=== PATIENT | male | born 1955 | race Caucasian/White ===

== ENCOUNTER 2017-07-06 08:55 | Inpatient (IN) ==
[2017-07-06] MEDS ORDERED: Ondansetron 4 MG/2 ML VIAL IVP ONE ×2 (09:07→13:02)
[2017-07-06] MEDS ORDERED: 0.9 % Sodium Chloride 1,000 ML IVC ONE ×2 (09:07→15:00)
--- NOTE | 2017-07-06 09:11 | Emergency Department Note ---
Disposition Clinical Impression: Acute kidney injury, Hyperglycemia, Dizziness Nausea and vomiting Qualifiers: Vomiting type: unspecified Vomiting Intractability: unspecified Qualified Code( s): R11.2 - Nausea with vomiting, unspecified Disposition: Admitted As Inpatient Condition: Fair Referrals: Noé Martin DO [Primary Care Provider] - Time of Disposition: 13:04 General Adult HPI - General Stated complaint: hyperglycemic Time Seen by Provider: 07/06/17 09:05 Source: patient Mode of arrival: EMS Limitations: no limitations Nursing Notes Reviewed: Yes Vital Signs Reviewed: Yes - History of Present Illness HPI Narrative: 62-year-old male presents for evaluation of nausea vomiting headache and difficulty ambulating. Patient states symptom onset has been the past couple days. Patient states he has had nausea vomiting and diarrhea for the past couple days. Patient also had a fever. Patient states that he feels dizzy when he walks. Patient also is complaining of shortness of breath with a cough. Patient states he has had a gradual onset of headache appears in the frontal region over the past 2 days. Patient states that he when he walks he is hitting the manzano. Patient denies any abdominal pain. Patient notes increased urination. Patient's blood sugar was elevated prior to arrival. Patient arrived via EMS. - Related Data Home Medications Medication Instructions Recorded Confirmed Atorvastatin [Lipitor] 40 mg PO HS 07/06/17 07/06/17 Esomeprazole Magnesium [Nexium] 40 mg PO DAILY 07/06/17 07/06/17 Lisinopril [Zestril] 10 mg PO DAILY 07/06/17 07/06/17 Metformin HCl [Glucophage] 1,000 mg PO BID 07/06/17 07/06/17 Allergies Allergy/AdvReac Type Severity Reaction Status Date / Time No Known Allergies Allergy Verified 07/06/17 09:11 All systems ED: reviewed and negative except as stated. Constitutional: Reports: fever Cardiovascular: Denies: chest pain Respiratory: Reports: cough, dyspnea Gastrointestinal: Reports: nausea, vomiting, diarrhea. Denies: abdominal pain Past Medical History - Past Medical History Source: patient Physical Exam - General Limitations: no limitations General appearance: alert, in no apparent distress - Head Head exam: atraumatic, normocephalic, normal inspection - Eye Eye exam: Present: normal appearance, PERRL, EOMI - ENT ENT exam: normal exam, normal oropharynx, mucous membranes moist - Neck Neck exam: Present: normal inspection - Chest Chest inspection: Present: normal inspection, symmetric chest wall rise - Respiratory Respiratory exam: Present: normal lung sounds bilaterally. Absent: respiratory distress - Cardiovascular Cardiovascular exam: Present: regular rate, normal rhythm. Absent: systolic murmur - Abdominal Exam Abdominal exam: Present: soft - Extremities Exam Extremities exam: Present: normal inspection. Absent: pedal edema - Back Exam Back exam: Present: normal inspection - Neurological Exam Neurological exam: Present: alert, oriented X3, CN II-XII intact - Expanded Neurological Exam Patient oriented to: Present: person, place, time Speech: Present: fluid speech Cranial nerves: EOM function (II, III, IV, ): Normal, facial sensation (V): Normal, facial palsy (VII): Normal, spinal accessory function (XI): Normal, tongue deviation (XII): Normal Cerebellar function: finger to nose: Normal Motor strength - LUE: 5/5 Motor strength - RUE: 5/5 Motor strength - LLE: 5/5 Motor strength - RLE: 5/5 Spinal cord function: Present: other (Positive Romberg) Coma Scale Eye Opening: Spontaneous Coma Scale Motor Response: Obeys Commands Coma Scale Verbal Response: Oriented Coma Scale Total: 15 - Skin Skin exam: Present: warm, dry, intact, normal color Course Course Narrative: Patient seen and examined via EMS. Patient will get basic labs, cardiac exam with EKG, chest x-ray and troponin. Patient also get symptomatically with IV fluids and antiemetics. - Reevaluation(s) Reevaluation #1: Patient seen and examined. Patient states he is feeling better however does state that he continues to complain of dizziness. Patient will get an MRI of the brain. Time: 10:01 Reevaluation #2: Patient seen and examined. Patient states that he still feels dizzy. Patient was also discussed at bedside. Patient does have a possible lung mass. Patient would likely need further imaging of the chest. Patient has a remote history of smoking. Patient denies any dyspnea. Time: 13:03 Vital Signs Temperature 99.3 F 07/06/17 09:03 Pulse Rate 111 07/06/17 09:03 Respiratory Rate 20 07/06/17 09:03 Blood Pressure 138/99 07/06/17 09:03 O2 Sat by Pulse Oximetry 93 07/06/17 09:03 Temperature 99.3 F 07/06/17 09:03 Pulse Rate 111 07/06/17 09:03 Respiratory Rate 20 07/06/17 09:03 Blood Pressure 138/99 07/06/17 09:03 O2 Sat by Pulse Oximetry 94 07/06/17 12:33 Oxygen Delivery Oxygen Delivery Room Air Medical Decision Making - MDM Narrative Medical decision making narrative: Patient presented initially with acute nausea vomiting diarrhea. Patient also had dizziness which is not worsened is barely upon standing. Initial concerns for metabolic versus central etiology the patient's dizziness. Patient was noted be hyperglycemic. Patient was treated with antiemetics as well as IV fluids. Patient persisted to have ataxic symptoms. She did get an MRI which showed remote infarcts. Patient denies history of strokes. Patient appeared to have continued symptoms. Patient does have acute kidney injury likely prerenal. Patient will be admitted to the hospital service for symptomatic treatment as well as medical optimization do a remote history of strokes. Patient would likely benefit from a CT scan with contrast of the chest however the patient's kidney function is slightly compromised. Patient's getting IV fluid hydration. Patient denies any abdominal pain or tenderness and a CT scan of the abdomen pelvis was not obtained at this time. - Lab Data Lab results reviewed: Yes I reviewed the patient's lab results. Result diagrams: 07/06/17 09:25 07/06/17 09:25 Lab Results 07/06/17 07/06/17 07/06/17 Range/Units 09:05 09:25 09:25 WBC 11.7 H (4.3-11.1) K/mcL RBC 5.43 (4.19-5.50) M/mcL Hgb 16.0 (12.9-16.9) g/dL Hct 46.9 (37.5-50.1) % MCV 86.4 (83.0-100.0) fL MCH 29.5 (28.0-33.3) pg MCHC 34.1 (31.6-35.5) g/dL RDW 13.0 (11.5-14.5) % Plt Count 214 (140-400) K/mcL MPV 9.7 (9.4-12.4) fL Immature Gran % 0.5 (0-4) % Seg Neutrophils % 70.5 % Lymphocytes % 17.6 % Monocytes % 11.1 % Eosinophils % 0.0 % Basophils % 0.3 % Neutrophils # 8.3 (1.6-8.9) K/mcL Lymphocytes # 2.1 (0.6-4.6) K/mcL Monocytes # 1.3 (0.0-1.3) K/mcL Eosinophils # 0.0 (0.0-0.6) K/mcL Basophils # 0.0 (0.0-0.2) K/mcL VBG pH (7.32-7.42) pH Units VBG pCO2 (41-51) mmHg VBG pO2 (25-50) mmHg VBG HCO3 (21-27) mEq/L Sodium 131 L (136-145) mEq/L Potassium 3.8 (3.5-5.1) mEq/L Chloride 97 L (98-107) mEq/L Carbon Dioxide 25 (23-29) mEq/L BUN 16 (8-23) mg/dL Creatinine 1.45 H (0.70-1.30) mg/dL Est GFR ( Amer) 60 (> 60) Est GFR (Non-Af Amer) 49 L (> 60) BUN/Creatinine Ratio 11 (6-26) Glucose 293 H (70-105) mg/dL POC Glucose 267 H (70-99) mg/dL Calculated Osmolality 284 (280-300) Lactic Acid (0.5-2.2) mmol/L Calcium 9.2 (8.6-10.3) mg/dL Total Bilirubin 0.8 (0.3-1.0) mg/dL Direct Bilirubin 0.3 H (0.0-0.2) mg/dL Indirect Bilirubin 0.5 (0.0-1.2) mg/dL AST 18 (13-39) Units/L ALT 19 (7-52) Units/L Alkaline Phosphatase 55 (34-104) Units/L Troponin I (< 0.04) ng/mL Serum Total Protein 7.4 (6.4-8.9) g/dL Albumin 3.8 (3.5-5.7) g/dL Globulin 3.6 H (2.4-3.5) g/dL Albumin/Globulin Ratio 1.1 (1.1-2.2) Lipase 27 (11-82) Units/L Beta-Hydroxybutyric Acd (0.02-0.27) mmol/L 07/06/17 07/06/17 07/06/17 Range/Units 09:25 09:25 09:25 WBC (4.3-11.1) K/mcL RBC (4.19-5.50) M/mcL Hgb (12.9-16.9) g/dL Hct (37.5-50.1) % MCV (83.0-100.0) fL MCH (28.0-33.3) pg MCHC (31.6-35.5) g/dL RDW (11.5-14.5) % Plt Count (140-400) K/mcL MPV (9.4-12.4) fL Immature Gran % (0-4) % Seg Neutrophils % % Lymphocytes % % Monocytes % % Eosinophils % % Basophils % % Neutrophils # (1.6-8.9) K/mcL Lymphocytes # (0.6-4.6) K/mcL Monocytes # (0.0-1.3) K/mcL Eosinophils # (0.0-0.6) K/mcL Basophils # (0.0-0.2) K/mcL VBG pH (7.32-7.42) pH Units VBG pCO2 (41-51) mmHg VBG pO2 (25-50) mmHg VBG HCO3 (21-27) mEq/L Sodium (136-145) mEq/L Potassium (3.5-5.1) mEq/L Chloride (98-107) mEq/L Carbon Dioxide (23-29) mEq/L BUN (8-23) mg/dL Creatinine (0.70-1.30) mg/dL Est GFR ( Amer) (> 60) Est GFR (Non-Af Amer) (> 60) BUN/Creatinine Ratio (6-26) Glucose (70-105) mg/dL POC Glucose (70-99) mg/dL Calculated Osmolality (280-300) Lactic Acid 1.3 (0.5-2.2) mmol/L Calcium (8.6-10.3) mg/dL Total Bilirubin (0.3-1.0) mg/dL Direct Bilirubin (0.0-0.2) mg/dL Indirect Bilirubin (0.0-1.2) mg/dL AST (13-39) Units/L ALT (7-52) Units/L Alkaline Phosphatase (34-104) Units/L Troponin I < 0.03 (< 0.04) ng/mL Serum Total Protein (6.4-8.9) g/dL Albumin (3.5-5.7) g/dL Globulin (2.4-3.5) g/dL Albumin/Globulin Ratio (1.1-2.2) Lipase (11-82) Units/L Beta-Hydroxybutyric Acd 0.21 (0.02-0.27) mmol/L 07/06/17 Range/Units 09:37 WBC (4.3-11.1) K/mcL RBC (4.19-5.50) M/mcL Hgb (12.9-16.9) g/dL Hct (37.5-50.1) % MCV (83.0-100.0) fL MCH (28.0-33.3) pg MCHC (31.6-35.5) g/dL RDW (11.5-14.5) % Plt Count (140-400) K/mcL MPV (9.4-12.4) fL Immature Gran % (0-4) % Seg Neutrophils % % Lymphocytes % % Monocytes % % Eosinophils % % Basophils % % Neutrophils # (1.6-8.9) K/mcL Lymphocytes # (0.6-4.6) K/mcL Monocytes # (0.0-1.3) K/mcL Eosinophils # (0.0-0.6) K/mcL Basophils # (0.0-0.2) K/mcL VBG pH 7.39 (7.32-7.42) pH Units VBG pCO2 39 L (41-51) mmHg VBG pO2 41 (25-50) mmHg VBG HCO3 24 (21-27) mEq/L Sodium (136-145) mEq/L Potassium (3.5-5.1) mEq/L Chloride (98-107) mEq/L Carbon Dioxide (23-29) mEq/L BUN (8-23) mg/dL Creatinine (0.70-1.30) mg/dL Est GFR ( Amer) (> 60) Est GFR (Non-Af Amer) (> 60) BUN/Creatinine Ratio (6-26) Glucose (70-105) mg/dL POC Glucose (70-99) mg/dL Calculated Osmolality (280-300) Lactic Acid (0.5-2.2) mmol/L Calcium (8.6-10.3) mg/dL Total Bilirubin (0.3-1.0) mg/dL Direct Bilirubin (0.0-0.2) mg/dL Indirect Bilirubin (0.0-1.2) mg/dL AST (13-39) Units/L ALT (7-52) Units/L Alkaline Phosphatase (34-104) Units/L Troponin I (< 0.04) ng/mL Serum Total Protein (6.4-8.9) g/dL Albumin (3.5-5.7) g/dL Globulin (2.4-3.5) g/dL Albumin/Globulin Ratio (1.1-2.2) Lipase (11-82) Units/L Beta-Hydroxybutyric Acd (0.02-0.27) mmol/L - Radiology Data Radiology results reviewed: Yes I reviewed the patient's radiology results. Chest X-Ray 07/06/17 09:09 IMPRESSION: There is a rounded density in the right lung base of uncertain etiology. A mass cannot be entirely excluded. Short-term follow-up chest x-ray or CT of the chest is suggested to further evaluate. The findings were sent to the Radiology Results Communication Center at 10:39 am on 07/06/2017to be communicated to a licensed caregiver. D/ / 07/06/2017 11:11:52 Asia Escoto MD / vidal Interpreting Provider: Asia Escoto MD - EKG Data EKG #1 EKG attestation: Yes I reviewed and interpreted this EKG. EKG shows normal: sinus rhythm Rate: tachycardia Rhythm: NSR [place]/QRS: normal Interpretation: no acute changes, nonspecific ST-T wave changes S.B.A.R. - S.B.A.R. Situation: Demographics Background: Presenting Complaint Assessment: Vital Signs, Course and respsone to treatment, Patient/Family Expectation Recommendation: Barrier(s) to disposition, Recommendation based on pending studies, treatments, or consults S.B.A.RShwetha Report Given to: Dr. Monserrat Ruggiero Repor Time: 13:14
[2017-07-06 09:39] LABS: Basophils % 0.3 %; Hematocrit 46.9 % (37.5-50.1); Immature Granulocytes % 0.5 % (0-4); Lymphocytes # 2.1 K/mcL (0.6-4.6); Lymphocytes % 17.6 %; Mean Corpuscular HGB Conc 34.1 g/dL (31.6-35.5); Mean Corpuscular Hemoglobin 29.5 pg (28.0-33.3); Mean Corpuscular Volume 86.4 fL (83.0-100.0); Mean Platelet Volume 9.7 fL (9.4-12.4); Monocytes # 1.3 K/mcL (0.0-1.3); Monocytes % 11.1 %; Neutrophils # 8.3 K/mcL (1.6-8.9); Platelet Count 214 K/mcL (140-400); Red Blood Count 5.43 M/mcL (4.19-5.50); Segmented Neutrophils % 70.5 %
[2017-07-06 09:40] LABS: VBG HCO3 24 mEq/L (21-27); VBG PCO2 39 mmHg (41-51); VBG PH 7.39 pH Units (7.32-7.42); VBG PO2 41 mmHg (25-50)
[2017-07-06 09:58] LABS: Albumin 3.8 g/dL (3.5-5.7); Albumin/Globulin Ratio 1.1 (1.1-2.2); Bilirubin,Direct 0.3 mg/dL (0.0-0.2); Bilirubin,Indirect 0.5 mg/dL (0.0-1.2); Bilirubin,Total 0.8 mg/dL (0.3-1.0); Calcium 9.2 mg/dL (8.6-10.3); Globulin 3.6 g/dL (2.4-3.5); Potassium 3.8 mEq/L (3.5-5.1); Total Protein 7.4 g/dL (6.4-8.9)
--- NOTE | 2017-07-06 10:16 | Emergency Department Note ---
Disposition Clinical Impression: Acute kidney injury, Hyperglycemia, Dizziness, Nausea and vomiting Disposition: Admitted As Inpatient Condition: Fair General Adult HPI - General Chief complaint: ED Dizziness Stated complaint: hyperglycemic Time Seen by Provider: 07/06/17 09:05 Source: patient Mode of arrival: EMS Limitations: no limitations - History of Present Illness Pain Scale: 4 - Related Data Home Medications Medication Instructions Recorded Confirmed Atorvastatin [Lipitor] 40 mg PO HS 07/06/17 07/06/17 Esomeprazole Magnesium [Nexium] 40 mg PO DAILY 07/06/17 07/06/17 Lisinopril [Zestril] 10 mg PO DAILY 07/06/17 07/06/17 Metformin HCl [Glucophage] 1,000 mg PO BID 07/06/17 07/06/17 Allergies Allergy/AdvReac Type Severity Reaction Status Date / Time No Known Allergies Allergy Verified 07/06/17 09:11 Constitutional: Reports: fever Cardiovascular: Denies: chest pain Respiratory: Reports: cough, dyspnea Gastrointestinal: Reports: nausea, vomiting, diarrhea. Denies: abdominal pain Past Medical History - Past Medical History Medical history: Reports: diabetes, hypertension Psychiatric history: Reports: no psych history - Social History Smoking Status: Never smoker Smokeless Tobacco Status: No Alcohol use: Reports: none Drug use: Reports: none Physical Exam - General Limitations: no limitations General appearance: alert, in no apparent distress Course Vital Signs Temperature 99.3 F 07/06/17 09:03 Pulse Rate 111 07/06/17 09:03 Respiratory Rate 20 07/06/17 09:03 Blood Pressure 138/99 07/06/17 09:03 O2 Sat by Pulse Oximetry 93 07/06/17 09:03 Temperature 99.2 F 07/06/17 15:34 Pulse Rate 100 07/06/17 15:34 Respiratory Rate 16 07/06/17 15:34 Blood Pressure 131/87 07/06/17 15:34 O2 Sat by Pulse Oximetry 97 07/06/17 15:34 Oxygen Delivery Oxygen Delivery Nasal Cannula Medical Decision Making - Lab Data Result diagrams: 07/06/17 09:25 07/06/17 09:25 Lab Results 07/06/17 07/06/17 07/06/17 Range/Units 09:05 09:25 09:25 WBC 11.7 H (4.3-11.1) K/mcL RBC 5.43 (4.19-5.50) M/mcL Hgb 16.0 (12.9-16.9) g/dL Hct 46.9 (37.5-50.1) % MCV 86.4 (83.0-100.0) fL MCH 29.5 (28.0-33.3) pg MCHC 34.1 (31.6-35.5) g/dL RDW 13.0 (11.5-14.5) % Plt Count 214 (140-400) K/mcL MPV 9.7 (9.4-12.4) fL Immature Gran % 0.5 (0-4) % Seg Neutrophils % 70.5 % Lymphocytes % 17.6 % Monocytes % 11.1 % Eosinophils % 0.0 % Basophils % 0.3 % Neutrophils # 8.3 (1.6-8.9) K/mcL Lymphocytes # 2.1 (0.6-4.6) K/mcL Monocytes # 1.3 (0.0-1.3) K/mcL Eosinophils # 0.0 (0.0-0.6) K/mcL Basophils # 0.0 (0.0-0.2) K/mcL VBG pH (7.32-7.42) pH Units VBG pCO2 (41-51) mmHg VBG pO2 (25-50) mmHg VBG HCO3 (21-27) mEq/L Sodium 131 L (136-145) mEq/L Potassium 3.8 (3.5-5.1) mEq/L Chloride 97 L (98-107) mEq/L Carbon Dioxide 25 (23-29) mEq/L BUN 16 (8-23) mg/dL Creatinine 1.45 H (0.70-1.30) mg/dL Est GFR ( Amer) 60 (> 60) Est GFR (Non-Af Amer) 49 L (> 60) BUN/Creatinine Ratio 11 (6-26) Glucose 293 H (70-105) mg/dL POC Glucose 267 H (70-99) mg/dL Calculated Osmolality 284 (280-300) Lactic Acid (0.5-2.2) mmol/L Calcium 9.2 (8.6-10.3) mg/dL Total Bilirubin 0.8 (0.3-1.0) mg/dL Direct Bilirubin 0.3 H (0.0-0.2) mg/dL Indirect Bilirubin 0.5 (0.0-1.2) mg/dL AST 18 (13-39) Units/L ALT 19 (7-52) Units/L Alkaline Phosphatase 55 (34-104) Units/L Troponin I (< 0.04) ng/mL Serum Total Protein 7.4 (6.4-8.9) g/dL Albumin 3.8 (3.5-5.7) g/dL Globulin 3.6 H (2.4-3.5) g/dL Albumin/Globulin Ratio 1.1 (1.1-2.2) Lipase 27 (11-82) Units/L Beta-Hydroxybutyric Acd (0.02-0.27) mmol/L 07/06/17 07/06/17 07/06/17 Range/Units 09:25 09:25 09:25 WBC (4.3-11.1) K/mcL RBC (4.19-5.50) M/mcL Hgb (12.9-16.9) g/dL Hct (37.5-50.1) % MCV (83.0-100.0) fL MCH (28.0-33.3) pg MCHC (31.6-35.5) g/dL RDW (11.5-14.5) % Plt Count (140-400) K/mcL MPV (9.4-12.4) fL Immature Gran % (0-4) % Seg Neutrophils % % Lymphocytes % % Monocytes % % Eosinophils % % Basophils % % Neutrophils # (1.6-8.9) K/mcL Lymphocytes # (0.6-4.6) K/mcL Monocytes # (0.0-1.3) K/mcL Eosinophils # (0.0-0.6) K/mcL Basophils # (0.0-0.2) K/mcL VBG pH (7.32-7.42) pH Units VBG pCO2 (41-51) mmHg VBG pO2 (25-50) mmHg VBG HCO3 (21-27) mEq/L Sodium (136-145) mEq/L Potassium (3.5-5.1) mEq/L Chloride (98-107) mEq/L Carbon Dioxide (23-29) mEq/L BUN (8-23) mg/dL Creatinine (0.70-1.30) mg/dL Est GFR ( Amer) (> 60) Est GFR (Non-Af Amer) (> 60) BUN/Creatinine Ratio (6-26) Glucose (70-105) mg/dL POC Glucose (70-99) mg/dL Calculated Osmolality (280-300) Lactic Acid 1.3 (0.5-2.2) mmol/L Calcium (8.6-10.3) mg/dL Total Bilirubin (0.3-1.0) mg/dL Direct Bilirubin (0.0-0.2) mg/dL Indirect Bilirubin (0.0-1.2) mg/dL AST (13-39) Units/L ALT (7-52) Units/L Alkaline Phosphatase (34-104) Units/L Troponin I < 0.03 (< 0.04) ng/mL Serum Total Protein (6.4-8.9) g/dL Albumin (3.5-5.7) g/dL Globulin (2.4-3.5) g/dL Albumin/Globulin Ratio (1.1-2.2) Lipase (11-82) Units/L Beta-Hydroxybutyric Acd 0.21 (0.02-0.27) mmol/L 07/06/17 Range/Units 09:37 WBC (4.3-11.1) K/mcL RBC (4.19-5.50) M/mcL Hgb (12.9-16.9) g/dL Hct (37.5-50.1) % MCV (83.0-100.0) fL MCH (28.0-33.3) pg MCHC (31.6-35.5) g/dL RDW (11.5-14.5) % Plt Count (140-400) K/mcL MPV (9.4-12.4) fL Immature Gran % (0-4) % Seg Neutrophils % % Lymphocytes % % Monocytes % % Eosinophils % % Basophils % % Neutrophils # (1.6-8.9) K/mcL Lymphocytes # (0.6-4.6) K/mcL Monocytes # (0.0-1.3) K/mcL Eosinophils # (0.0-0.6) K/mcL Basophils # (0.0-0.2) K/mcL VBG pH 7.39 (7.32-7.42) pH Units VBG pCO2 39 L (41-51) mmHg VBG pO2 41 (25-50) mmHg VBG HCO3 24 (21-27) mEq/L Sodium (136-145) mEq/L Potassium (3.5-5.1) mEq/L Chloride (98-107) mEq/L Carbon Dioxide (23-29) mEq/L BUN (8-23) mg/dL Creatinine (0.70-1.30) mg/dL Est GFR ( Amer) (> 60) Est GFR (Non-Af Amer) (> 60) BUN/Creatinine Ratio (6-26) Glucose (70-105) mg/dL POC Glucose (70-99) mg/dL Calculated Osmolality (280-300) Lactic Acid (0.5-2.2) mmol/L Calcium (8.6-10.3) mg/dL Total Bilirubin (0.3-1.0) mg/dL Direct Bilirubin (0.0-0.2) mg/dL Indirect Bilirubin (0.0-1.2) mg/dL AST (13-39) Units/L ALT (7-52) Units/L Alkaline Phosphatase (34-104) Units/L Troponin I (< 0.04) ng/mL Serum Total Protein (6.4-8.9) g/dL Albumin (3.5-5.7) g/dL Globulin (2.4-3.5) g/dL Albumin/Globulin Ratio (1.1-2.2) Lipase (11-82) Units/L Beta-Hydroxybutyric Acd (0.02-0.27) mmol/L Attestation Statement - Attestation Attestation: I examined this patient and my medical decision-making was reviewed with the Resident Physician. I agree with the documented findings, disposition and treatment plan as described except to the extent set forth below. Patient presents to the ED with a chief complaint of dizziness. The patient has had some vomiting and diarrhea. He said dizziness for a couple days that worsened this morning. Significant other states that he was walking back and forth between the manzano holding on. Denies visual change or headache. No numbness tingling. On examination he is in no distress. His exam is significant for horizontal nystagmus. Plan. Cardiac workup. Patient is not significantly better after Antivert and fluids. We will check MRI. MRI negative for acute infarct. Patient is still dizzy and ataxic. Admitted.
[2017-07-06] MEDS ORDERED: Aminoglycoside Consult 1 EACH MC ONE (11:36)
[2017-07-06] MEDS ORDERED: *HR* Promethazine 25 MG/ML VIAL IVP PRN (13:34)
[2017-07-06] MEDS ORDERED: Naloxone 0.4 MG/ML INJ IVP PRN (14:04)
[2017-07-06] MEDS ORDERED: D5% in Water 1,000 ML IVC PRN (14:10)
[2017-07-06] MEDS ORDERED: Dextrose Gel 15 GM/37.5 ML TUBE PO PRN ×2 (14:10)
[2017-07-06] MEDS ORDERED: *HR* Dextrose 50 % in Water (Syg) 50 ML SYRINGE IVP PRN (14:10)
--- NOTE | 2017-07-06 14:24 | Internal Med History&Physical ---
<RosalesFransico Hadley - Last Filed: 07/06/17 17:04> Date of Encounter: 07/06/17 Time of Encounter: 13:30 Internal Medicine - H&P: HPI Chief complaint: Dizziness/N/V/Fever Admitted From: Emergency Dept Plans for Post Hospital Care: Home History of present illness: Mr. Larsen is a 62 year old male w/PMH of HTN, HLD, GERD, and diabetes presents in the ED with chief complaint of diarrhea, dizziness, nausea, vomiting , headache, and fever for the past 2 days. Patient states he has been extremely dizzy and has not been eating or drinking due to the nausea and vomiting. Denies recent abx use. No alleviating factors. Denies SOB or cough. Patient denies recent illness or sick contacts but reports pt. going to [employer] [place] several days ago. Pt. reports weakness and fatigue but denies hx of dizziness, changes in vision, CP, palpitations, chest congestion, cough, SOB, abdominal pain, numbness, tingling, unusual bleeding, or syncope. Past Med Surg Social Fam HX - Past Medical History Source: patient, old records reviewed, obtained from family Medical history: diabetes, GERD, hyperlipidemia, hypertension Psychiatric history: no psych history - Social History Smoking Status: Never smoker Smokeless Tobacco Status: No Alcohol use: none Drug use: none Current living situation: Home, With Family Activity Level: Independent ambulation, Very active Recent Out of Country Travel Within the Last 8 Weeks: No Exposure or Possible Exposure to Illness During Travel: No - Family History Father Race: Family Member Ethnicity: Non- Living Status: Age at : 70 Cause of : Renal failure Hx Family Endocrine Disorder: Yes (DM) Mother Race: Family Member Ethnicity: Non- Living Status: Age at : 64 Cause of : Ovarian cancer Hx Family Cancer: Yes (Ovarian) Sister Race: Family Member Ethnicity: Non- Living Status: Still Living Hx Family Medical Disorders: No Internal Medicine - H&P: Meds Atorvastatin [Lipitor] 40 mg PO HS 07/06/17 [History] Esomeprazole Magnesium [Nexium] 40 mg PO DAILY 07/06/17 [History] Lisinopril [Zestril] 10 mg PO DAILY 07/06/17 [History] Metformin HCl [Glucophage] 1,000 mg PO BID 07/06/17 [History] 3 Allergy/AdvReac Type Severity Reaction Status Date / Time No Known Allergies Allergy Verified 07/06/17 09:11 All Systems PM: A 10-system review of systems was performed and is negative for pertinent findings except as documented above in the HPI. - Constitutional Constitutional: as per HPI, chills, fatigue, fever(s), weakness, no night sweats - EENT Eyes: no change in vision, no discharge, no pain, no photophobia Ears: no ear discharge, no ear pain, no tinnitus Nose, mouth and throat: no dysphagia, no nasal discharge, no neck pain, no sore throat - Breasts Breasts: as per HPI - Cardiovascular Cardiovascular ROS IM: as per HPI, lightheadedness, no chest pain, no diaphoresis, no dyspnea, no palpitations, no syncope - Respiratory Respiratory: as per HPI, no cough, no dyspnea, no wheezing, no excessive phlegm production - Gastrointestinal Gastrointestinal: as per HPI, diarrhea, heartburn, nausea, vomiting, no abdominal pain, no hematemesis, no hematochezia, no melena - Genitourinary Genitourinary ROS male: as per HPI, urinary frequency - Musculoskeletal Musculoskeletal ROS IM: no numbness, no tingling - Integumentary Integumentary IM: no rash, no unusual bruising - Neurological Neurological ROS: as per HPI, disequilibrium, dizziness, headache(s), weakness, no confusion, no convulsions, no focal weakness, no numbness, no tingling, no tremor(s) - Psychiatric Psychiatric: as per HPI - Endocrine Endocrine IM: as per HPI - Hematologic/Lymphatic Hematologic/Lymphatic: no easy bruising - Allergic/Immunologic Allergic/Immunologic: as per HPI - Constitutional Vitals: Temp Pulse Resp BP Pulse Ox 99.3 F 98 18 112/87 99 07/06/17 09:03 07/06/17 13:24 07/06/17 13:24 07/06/17 13:24 07/06/17 13:24 General appearance: Present: cooperative, mild distress (Generalized weakness, nausea, chills), A&O X 3, pleasant, obese, answers questions appropriately - Head Head exam: Present: atraumatic, normocephalic - Eye Eye exam: Present: PERRL, conjuntiva pink, sclera anicteric Pupils: Present: PERRL - ENT ENT exam: Present: normal exam, normal external ear exam - Neck Neck exam general surgery: Present: normal inspection, supple, trachea midline. Absent: lymphadenopathy - Respiratory Respiratory exam: Present: CTAB. Absent: accessory muscle use, rales, rhonchi, wheezes - Cardiovascular Cardiovascular exam: Present: RRR, +S1, +S2. Absent: diastolic murmur, gallop, rubs, systolic murmur - GI/Abdominal GI/Abdominal exam: Present: diminished bowel sounds, soft, no peritoneal signs. Absent: distended, tenderness - Rectal Rectal exam: Present: deferred - Additional comments: exam deferred. - Extremities Exam Extremities exam: Present: warm, radial pulses palpable and symmetrical. Absent : calf tenderness, cyanotic, pedal edema - Back Exam Back exam: Present: normal inspection - Neurological Exam Neurological exam: Present: CN II-XII intact, oriented X3, no focal deficits. Absent: pronater drift, facial droop, speech deficit - Psychiatric Psychiatric exam: Present: normal affect, normal mood - Skin Skin exam: Present: dry, intact Internal Med - H&P Results - Labs CBC & Chem 7: 07/06/17 09:25 07/06/17 09:25 Labs: Short CBC 07/06/17 Range/Units 09:25 WBC 11.7 H (4.3-11.1) K/mcL Hgb 16.0 (12.9-16.9) g/dL Hct 46.9 (37.5-50.1) % Plt Count 214 (140-400) K/mcL Neutrophils # 8.3 (1.6-8.9) K/mcL BMP 07/06/17 09:25 Sodium 131 L Potassium 3.8 Chloride 97 L Carbon Dioxide 25 BUN 16 Creatinine 1.45 H Glucose 293 H Calcium 9.2 Cardiac Enzymes 07/06/17 Range/Units 09:25 Troponin I < 0.03 (< 0.04) ng/mL Liver Function 07/06/17 Range/Units 09:25 Total Bilirubin 0.8 (0.3-1.0) mg/dL Direct Bilirubin 0.3 H (0.0-0.2) mg/dL AST 18 (13-39) Units/L ALT 19 (7-52) Units/L Alkaline Phosphatase 55 (34-104) Units/L Albumin 3.8 (3.5-5.7) g/dL - ABG Interpretation ABG results: 07/06/17 09:37 VBG pH 7.39 VBG pCO2 39 L VBG pO2 41 VBG HCO3 24 - EKG Data EKG shows normal: sinus rhythm Rate: tachycardia - EKG Data Prior EKG available for review: yes EKG comments: 07/06/17 14:31 EKG dated 06/17/08 shows sinus rhythm and normal ECG. EKG dated 07/06/17 shows sinus tachycardia with frequent supraventricular premature complexes and nonspecific T-wave abnormality. Abnormal rhythm ECG. - Impressions ITS Impressions Chest X-Ray 07/06/17 09:09 IMPRESSION: There is a rounded density in the right lung base of uncertain etiology. A mass cannot be entirely excluded. Short-term follow-up chest x-ray or CT of the chest is suggested to further evaluate. The findings were sent to the Radiology Results Communication [facility] at 10:39 am on 07/06/2017to be communicated to a licensed caregiver. D/ / 07/06/2017 11:11:52 Asia Escoto MD / [facility] Interpreting Provider: Asia Escoto MD Brain MRI 07/06/17 10:00 IMPRESSION: Motion artifact degrades the images. Mild chronic small vessel ischemic changes. No acute brain parenchymal abnormality. D/ / 07/06/2017 12:29:20 Asia Escoto MD / [facility] Interpreting Provider: Asia Escoto MD - Diagnostic Studies Chest x-ray Additional comments: Impressions Chest X-Ray 07/06/17 09:09 IMPRESSION: There is a rounded density in the right lung base of uncertain etiology. A mass cannot be entirely excluded. Short-term follow-up chest x-ray or CT of the chest is suggested to further evaluate. The findings were sent to the Radiology Results Communication Center at 10:39 am on 07/06/2017to be communicated to a licensed caregiver. D/ / 07/06/2017 11:11:52 Asia Escoto MD / [facility] Interpreting Provider: Asia Escoto MD MRI - head Additional comments: Impressions Brain MRI 07/06/17 10:00 IMPRESSION: Motion artifact degrades the images. Mild chronic small vessel ischemic changes. No acute brain parenchymal abnormality. D/ / 07/06/2017 12:29:20 Asia Escoto MD / rad Interpreting Provider: Asia Escoto MD - Assessment and plan (1) Sepsis Current Visit: Yes Status: Acute Assessment and plan: Acute sepsis criteria of WBC of 11.7, HR of 111, RR of 21. Pt. reports N/V/ diarrhea/TRINIDAD/fever/chills/generalized weakness for the past two days. Denies sick contacts. Blood cultures x2 ordered stat. Respiratory infection panel ordered stat. 0.9 NS IV fluid bolus to be followed by @100 mL/HR. Lactic acid 1.3. Will repeat. Respiratory infection panel negative. IVPB Zosyn 3.375 gm Q8 and levaquin 750 mg daily for infection coverage to be adjusted by Pharmacy for renal dosing d/t MARLYN if warranted. Will adjust abx coverage based on culture results. Legionella and strep pneumoniae antigens ordered stat. Tylenol 650 mg Q6HR PRN for fever. Continuous cardiac telemetry d/t tachycardia. Monitor I&O and f/u labs. Pt. discussed w/Dr. Delacruz who agrees w/plan of care. Pt. is high risk for further morbidity and infection d/t current sepsis criteria, dehydration d/t N/V/diarrhea requiring IV fluid resuscitation, and risk factors. Inpatient. Qualifiers: Sepsis type: sepsis due to unspecified organism Qualified Code(s): A41.9 - Sepsis, unspecified organism (2) Leukocytosis Current Visit: Yes Status: Acute Assessment and plan: Acute leukocytosis w/WBC of 11.7 on admission. Blood cultures x2 ordered stat. Respiratory infection panel ordered stat. Monitor f/u labs. Qualifiers: Leukocytosis type: unspecified Qualified Code(s): D72.829 - Elevated white blood cell count, unspecified (3) Dizziness Current Visit: Yes Status: Acute Assessment and plan: Acute dizziness for the past two days most likely d/t dehydration and infection. Pt. reports N/V/diarrhea/fever/chills/TRINIDAD for two days. Reports almost becoming pre-syncopal w/ambulation. MRI ordered which showed motion artifact degrading the images. Mild chronic small vessel ischemic changes. No acute brain parenchymal abnormality. MRA ordered w/o contrast d/t MARLYN with results showing unremarkable MRA of the head. Bilateral carotid Dopplers ordered. Orthostatic BPs and VS. Will consider Neurology consult if sx persist. Falls/safety precautions, up with assist, bedrest w/bathroom privileges w/ assist only. PT/OT consults. (4) Nausea and vomiting Current Visit: Yes Status: Acute Assessment and plan: Acute nausea and vomiting for the past two days. Pt. reports not eating or drinking d/t N/V. Zofran given in ED. IVP Phenergan 12.5 mg Q6HR PRN ordered. Monitor I&O and daily weight. Clear liquid diet w/advancement as tolerated. IV fluids for dehydration. Qualifiers: Vomiting type: unspecified Vomiting Intractability: unspecified Qualified Code(s): R11.2 - Nausea with vomiting, unspecified (5) Generalized weakness Current Visit: Yes Status: Acute Assessment and plan: Acute generalized weakness and fatigue for the past two days. Falls/safety precautions, up with assist, bedrest w/bathroom privileges w/assist only. (6) Hyponatremia Current Visit: Yes Status: Acute Assessment and plan: Acute hyponatremia w/sodium of 131 on admission. Chloride is also below normal at 97. 0.9 NS IV fluids @100 mL/HR ordered. Monitor pt. and f/u labs. (7) Acute kidney injury Current Visit: Yes Status: Acute Assessment and plan: MARLYN w/GFR of 49 and creatinine of 1.45 most likely due to dehydration and patient's reduce oral fluid intake, diarrhea, and vomiting. Patient denies history of CKD, but reports father of renal failure on dialysis. 0.9 NS IV fluids @ 100mL/HR for fluid resuscitation. Avoid nephrotoxins. Monitor I&O and daily weight. Monitor f/u labs. (8) GERD (gastroesophageal reflux disease) Current Visit: Yes Status: Chronic Assessment and plan: Hx of chronic GERD. Phenergan 12.5 mg Q6HR PRN for N/V. Continue pts. Nexium. Qualifiers: Esophagitis presence: esophagitis presence not specified Qualified Code(s) : K21.9 - Gastro-esophageal reflux disease without esophagitis (9) HTN (hypertension) Current Visit: Yes Status: Chronic Assessment and plan: Hx of chronic HTN. Monitor pt. and VS. Continue pts. lisinopril. Qualifiers: Hypertension type: essential hypertension Qualified Code(s): I10 - Essential (primary) hypertension (10) HLD (hyperlipidemia) Current Visit: Yes Status: Chronic Assessment and plan: Hx of chronic HLD. Lipid panel in a.m. labs. Continue patient's Lipitor. Qualifiers: Hyperlipidemia type: pure hypercholesterolemia Qualified Code(s): E78.00 - Pure hypercholesterolemia, unspecified (11) Diabetes Current Visit: Yes Status: Chronic Assessment and plan: Hx of chronic diabetes controlled with oral anti-hyperglycemic medications. Hold patient's metformin and administer low-dose correction insulin sliding scale with hypoglycemic protocol. A1c in a.m. labs. BG checks before meals at bedtime. Qualifiers: Diabetes mellitus type: type 2 Diabetes mellitus kennel helper insulin use: without kennel helper use Diabetes mellitus complication status: with unspecified complications Qualified Code(s): E11.8 - Type 2 diabetes mellitus with unspecified complications (12) DVT prophylaxis Current Visit: Yes Status: Acute Assessment and plan: Heparin 5,000 units SQ Q8 for DVT prophylaxis. Monitor pt. for signs of bleeding. - Time Spent With Patient Total time spent is greater than 50% in coordination of care (as documented) at patient's floor/unit and/or counseling patient: 25 - 35 minutes <Izaiah Delacruz - Last Filed: 07/08/17 00:01> Date of Encounter: 07/08/17 Internal Medicine - H&P: HPI History of present illness: Mr. Larsen is a 62 year old male All Systems PM: A 10-system review of systems was performed and is negative for pertinent findings except as documented above in the HPI. - Constitutional Vitals: Temp Pulse Resp BP Pulse Ox 98.4 F 93 17 104/63 92 07/07/17 19:15 07/07/17 19:15 07/07/17 19:15 07/07/17 19:15 07/07/17 19:15 Internal Med - H&P Results - Labs CBC & Chem 7: 07/07/17 00:28 07/07/17 00:28 Labs: Short CBC 07/07/17 Range/Units 00:28 WBC 8.9 (4.3-11.1) K/mcL Hgb 14.9 (12.9-16.9) g/dL Hct 45.1 (37.5-50.1) % Plt Count 208 (140-400) K/mcL Neutrophils # 5.9 (1.6-8.9) K/mcL BMP 07/07/17 07/07/17 00:28 00:28 Sodium 134 L 133 L Potassium 3.6 3.6 Chloride 101 100 Carbon Dioxide 27 26 BUN 14 14 Creatinine 1.29 1.28 Glucose 166 H 174 H Calcium 8.3 L 8.4 L Liver Function 07/07/17 Range/Units 00:28 Total Bilirubin 0.6 (0.3-1.0) mg/dL AST 23 (13-39) Units/L ALT 21 (7-52) Units/L Alkaline Phosphatase 50 (34-104) Units/L Albumin 3.2 L (3.5-5.7) g/dL - Impressions ITS Impressions Chest CT 07/07/17 14:30 IMPRESSION: Dense right lower lobe consolidation with air bronchograms representing pneumonia in the correct clinical setting. There is a small parapneumonic effusion. Recommend follow-up radiographic imaging until resolution. D/ / 07/07/2017 11:36:28 Abraham Herrera MD / [facility] Interpreting Provider: Abraham Herrera MD Head CT 07/07/17 15:21 IMPRESSION: No acute intracranial abnormality. D/ / 07/07/2017 17:28:53 Lokesh Bishop MD / [facility] Interpreting Provider: Lokesh Bishop MD - Attending Attestation I examined this patient and my medical decision-making was reviewed with the Resident Physician/LOG OPERATIONS COORDINATOR. I agree with the documented findings, disposition and treatment plan as described except to the extent set forth below. - Assessment and plan (1) Acute kidney injury Current Visit: Yes Status: Acute (2) Dizziness Current Visit: Yes Status: Acute (3) Nausea and vomiting Current Visit: Yes Status: Acute Qualifiers: Vomiting type: unspecified Vomiting Intractability: unspecified Qualified Code(s): R11.2 - Nausea with vomiting, unspecified (4) Leukocytosis Current Visit: Yes Status: Acute Qualifiers: Leukocytosis type: unspecified Qualified Code(s): D72.829 - Elevated white blood cell count, unspecified (5) GERD (gastroesophageal reflux disease) Current Visit: Yes Status: Chronic Qualifiers: Esophagitis presence: esophagitis presence not specified Qualified Code(s) : K21.9 - Gastro-esophageal reflux disease without esophagitis (6) HTN (hypertension) Current Visit: Yes Status: Chronic Qualifiers: Hypertension type: essential hypertension Qualified Code(s): I10 - Essential (primary) hypertension (7) HLD (hyperlipidemia) Current Visit: Yes Status: Chronic Qualifiers: Hyperlipidemia type: mixed hyperlipidemia Qualified Code(s): E78.2 - Mixed hyperlipidemia (8) Diabetes Current Visit: Yes Status: Chronic Qualifiers: Diabetes mellitus type: type 2 Diabetes mellitus halfway insulin use: without halfway use Diabetes mellitus complication status: with hyperglycemia Qualified Code(s): E11.65 - Type 2 diabetes mellitus with hyperglycemia (9) DVT prophylaxis Current Visit: Yes Status: Acute (10) Hyponatremia Current Visit: Yes Status: Acute (11) Sepsis Current Visit: Yes Status: Suspected Qualifiers: Sepsis type: Pneumococcus Qualified Code(s): A40.3 - Sepsis due to Streptococcus pneumoniae (12) Generalized weakness Current Visit: Yes Status: Acute (13) Pneumonia Current Visit: Yes Status: Suspected Qualifiers: Pneumonia type: due to Pneumococcus Laterality: right Lung location: lower lobe of lung Qualified Code(s): J13 - Pneumonia due to Streptococcus pneumoniae - Time Spent With Patient Total time spent is greater than 50% in coordination of care (as documented) at patient's floor/unit and/or counseling patient:
[2017-07-06 16:04] LABS: Adenovirus Not Detected (Not Detect); Bordetella Pertussis Not Detected (Not Detect); Chlamydophila pneumoniae Not Detected (Not Detect); Coronavirus 229E Not Detected (Not Detect); Coronavirus HKU1 Not Detected (Not Detect); Coronavirus NL63 Not Detected (Not Detect); Coronavirus OC43 Not Detected (Not Detect); Human Metapneumovirus Not Detected (Not Detect); Human Rhinovirus/Enterovirus Not Detected (Not Detect); Influenza A Subtype 2009 H1 Not Detected (Not Detect); Influenza A Untypeable Not Detected (Not Detect); Influenza B Not Detected (Not Detect); Mycoplasma pneumoniae Not Detected (Not Detect); Parainfluenza Virus 1 Not Detected (Not Detect); Parainfluenza Virus 2 Not Detected (Not Detect); Parainfluenza Virus 3 Not Detected (Not Detect); Parainfluenza Virus 4 Not Detected (Not Detect); Respiratory Syncytial Virus Not Detected (Not Detect)
[2017-07-06] MEDS: Insulin LISPRO 300 UNITS/3 ML VIAL SQ SCH ×2 (17:18→20:47)
[2017-07-06] MEDS: 0.9 % Sodium Chloride 1,000 ML IVC SCH (17:18)
[2017-07-06] MEDS: Levofloxacin 750 MG/150 ML 750 MG/150 ML BAG IVPB SCH (17:18)
[2017-07-06] MEDS: Piperacillin/Tazobactam 3.375 GM in 0.9 % Sodium Chloride Mini Bag 100 ML IVPB SCH (17:29)
[2017-07-06] MEDS: *HR* Heparin 5,000 UNIT/ML VIAL SQ SCH (20:42)
[2017-07-06] MEDS: Acetaminophen 325 MG TABLET PO PRN (20:42)
[2017-07-06 22:43] LABS: Bilirubin,Urine Negative (Negative); Blood,Urine Moderate (Negative); Clarity,Urine Clear (Clear); Color,Urine Yellow (Yellow); Glucose,Urine (UA) 500 mg/dL (Normal); Ketones,Urine Negative (Negative); Leukocyte Esterase,Urine Negative (Negative); Nitrite,Urine Negative (Negative); PH,Urine 5.5 pH Units (5.0-8.0); Protein,Urine >=300 mg/dL (Neg-Trace); Urobilinogen,Urine Normal (Normal)
[2017-07-06 22:45] LABS: Squamous Epithelial Cell,Urine Many per lpf (None-Few); WBC,Urine 0-3 per hpf (0-3)
[2017-07-06 22:58] LABS: Bacteria,Urine Few per hpf (None-Few); Hyaline Casts,Urine Few per lpf (None-Few)
[2017-07-06] MEDS ORDERED: Acetaminophen 650 MG RECTAL SUPP RC PRN (23:51)
[2017-07-07] MEDS: Melatonin 3 MG TABLET PO PRN ×2 (00:30→23:10)
[2017-07-07] MEDS: Piperacillin/Tazobactam 3.375 GM in 0.9 % Sodium Chloride Mini Bag 100 ML IVPB SCH ×2 (00:30→08:46)
[2017-07-07 01:20] LABS: Basophils % 0.3 %; Eosinophils % 0.3 %; Hematocrit 45.1 % (37.5-50.1); Hemoglobin 14.9 g/dL (12.9-16.9); Immature Granulocytes % 0.3 % (0-4); Lymphocytes % 21.8 %; Mean Corpuscular Hemoglobin 29.2 pg (28.0-33.3); Mean Corpuscular Volume 88.3 fL (83.0-100.0); Mean Platelet Volume 10.1 fL (9.4-12.4); Monocytes % 11.1 %; Neutrophils # 5.9 K/mcL (1.6-8.9); Platelet Count 208 K/mcL (140-400); Red Blood Count 5.11 M/mcL (4.19-5.50); Red Cell Distribution Width 12.9 % (11.5-14.5); Segmented Neutrophils % 66.2 %
[2017-07-07 01:45] LABS: BUN/Creatinine Ratio 11 (6-26); Blood Urea Nitrogen 14 mg/dL (8-23); Calcium 8.4 mg/dL (8.6-10.3); Carbon Dioxide 26 mEq/L (23-29); Chloride 100 mEq/L (98-107); Glucose 174 mg/dL (70-105); Osmolality,Calculated 281 (280-300); Potassium 3.6 mEq/L (3.5-5.1); Sodium 133 mEq/L (136-145); eGFR For African Americans > 60 (> 60); eGFR For Non-African Americans 57 (> 60)
[2017-07-07 01:46] LABS: Alanine Aminotransferase 21 Units/L (7-52); Albumin 3.2 g/dL (3.5-5.7); Alkaline Phosphatase 50 Units/L (34-104); Aspartate Amino Transferase 23 Units/L (13-39); BUN/Creatinine Ratio 11 (6-26); Bilirubin,Total 0.6 mg/dL (0.3-1.0); Blood Urea Nitrogen 14 mg/dL (8-23); Calcium 8.3 mg/dL (8.6-10.3); Carbon Dioxide 27 mEq/L (23-29); Chloride 101 mEq/L (98-107); Chol/HDL Ratio 2.5 (0-4.9); Cholesterol 132 mg/dL (< 200); Globulin 3.2 g/dL (2.4-3.5); Glucose 166 mg/dL (70-105); HDL Cholesterol 53 mg/dL (40-59); LDL Cholesterol,Calculated 57 mg/dL (0-99); Magnesium 1.3 mg/dL (1.6-2.6); Osmolality,Calculated 282 (280-300); Potassium 3.6 mEq/L (3.5-5.1); Sodium 134 mEq/L (136-145); Total Protein 6.4 g/dL (6.4-8.9); Triglycerides 112 mg/dL (< 150); eGFR For African Americans > 60 (> 60); eGFR For Non-African Americans 57 (> 60)
[2017-07-07 02:01] LABS: Thyroid Stimulating Hormone 1.137 mcIU/mL (0.340-5.600)
[2017-07-07] MEDS: *HR* Heparin 5,000 UNIT/ML VIAL SQ SCH ×3 (05:02→22:51)
[2017-07-07] MEDS: 0.9 % Sodium Chloride 1,000 ML IVC SCH ×2 (05:03→15:21)
[2017-07-07] MEDS: traMADol 50 MG TABLET PO PRN (05:15)
--- NOTE | 2017-07-07 07:13 | Electrocardiograph Report ---
[place] [facility] Test Date: 2017-07-06 Pat Name: Jefferson Larsen Department: 103 Room: 2NE31 Gender: M An/Ssn 2 4 Operator: [facility] : 1955 Requested By: Johnathon Bowens Order Number: [id number] Reading MD: Mindy Pimentel Measurements Intervals [place] Rate: 110 P: 60 CA: 139 QRS: 29 QRSD: 102 T: 3 QT: 321 QTc: 386 Interpretive Statements SINUS TACHYCARDIA WITH FREQUENT SUPRAVENTRICULAR PREMATURE COMPLEXES NONSPECIFIC T-WAVE ABNORMALITY ABNORMAL RHYTHM ECG Electronically Signed On 07-07-2017 7:11:43 EDT by Mindy Pimentel
[2017-07-07] MEDS: Acetaminophen 325 MG TABLET PO PRN (08:48)
[2017-07-07] MEDS: Insulin LISPRO 300 UNITS/3 ML VIAL SQ SCH ×4 (08:49→22:51)
--- NOTE | 2017-07-07 11:29 | Internal Med Progress Note ---
<Kirk Thomas - Last Filed: 07/07/17 13:21> Date of Encounter: 07/07/17 Time of Encounter: 09:30 - Assessment and plan (1) Dizziness Current Visit: Yes Status: Acute Assessment and plan: Acute dizziness for the past two days most likely from dehydration vs less likely from infection. Patient hx of vomiting, diarrhea, and no fluid intake is consistent with dehydration. CT and CXR is consistent with right lobe pneumonia. MRI ordered which showed motion artifact degrading the images. Mild chronic small vessel ischemic changes. No acute brain parenchymal abnormality. MRA ordered w/o contrast d/t MARLYN with results showing unremarkable MRA of the head. - Bilateral carotid Dopplers pending - Orthostatic BPs pending. continue monitoring vitals - fall precuations - PT/OT consulted - CXR identified mass in right lower lung; ordered follow up CT as recommended. CT showed right lower lobe consolidation and recommended following to resolution - continue levaquin (day 2) - Patienis not HAP; will d/c vanc and zosyn at this time - arreaga culttures pending (2) Acute kidney injury Current Visit: Yes Status: Acute Assessment and plan: Patient has no known hx of CKD. Patient Cr was elevated on admission at 1.45, with no azotemia. This AM labs showed Cr improvement to 1.28. MARLYN most likely from dehydration. Will continue to follow and continue fluid hydration. - Ct 0.9 NS IV fluids @ 100mL/HR for fluid resuscitation. - Avoid nephrotoxins. - Monitor I&O and daily weight - morning labs (3) Nausea and vomiting Current Visit: Yes Status: Acute Assessment and plan: resolved. most likely in the setting of dehydration. - continue Zofran and phenergen Qualifiers: Vomiting type: unspecified Vomiting Intractability: unspecified Qualified Code(s): R11.2 - Nausea with vomiting, unspecified (4) Leukocytosis Current Visit: Yes Status: Acute Assessment and plan: resolved Qualifiers: Leukocytosis type: unspecified Qualified Code(s): D72.829 - Elevated white blood cell count, unspecified (5) HTN (hypertension) Current Visit: Yes Status: Chronic Assessment and plan: Chronic HTN. MARLYN appears resolved, ok to restart ACEI Qualifiers: Hypertension type: essential hypertension Qualified Code(s): I10 - Essential (primary) hypertension (6) Hyponatremia Current Visit: Yes Status: Acute Assessment and plan: on admission na was 131; has been replaced with IVF NS and responded appropriately. Clinically asymptomatic - Will continue fluids and monitor electrolytes (7) Sepsis Current Visit: Yes Status: Acute Assessment and plan: Currently does not meet SIRS criteria, besides mild tachycardia. Currently afebrile, no leukocytosis, and normotensive. Will continue to monitor Qualifiers: Sepsis type: sepsis due to unspecified organism Qualified Code(s): A41.9 - Sepsis, unspecified organism (8) Diabetes Current Visit: Yes Status: Chronic Assessment and plan: continue SSI-low, w/ serial BG checks. A1C was ordered by night team. Qualifiers: Diabetes mellitus type: type 2 Diabetes mellitus exterminator helper termite insulin use: without exterminator helper termite use Diabetes mellitus complication status: with unspecified complications Qualified Code(s): E11.8 - Type 2 diabetes mellitus with unspecified complications (9) HLD (hyperlipidemia) Current Visit: Yes Status: Chronic Assessment and plan: Lipid Panel came back, appears well controlled. Continue home statin Qualifiers: Hyperlipidemia type: pure hypercholesterolemia Qualified Code(s): E78.00 - Pure hypercholesterolemia, unspecified (10) GERD (gastroesophageal reflux disease) Current Visit: Yes Status: Chronic Assessment and plan: Hx of chronic GERD. Phenergan 12.5 mg Q6HR PRN for N/V. Continue pts. Nexium. Qualifiers: Esophagitis presence: esophagitis presence not specified Qualified Code(s) : K21.9 - Gastro-esophageal reflux disease without esophagitis (11) DVT prophylaxis Current Visit: Yes Status: Acute Assessment and plan: Heparin 5,000 units SQ Q8 for DVT prophylaxis. Monitor pt. for signs of bleeding. (12) Generalized weakness Current Visit: Yes Status: Acute Assessment and plan: has currently resolved - Time Spent With Patient Total time spent is greater than 50% in coordination of care (as documented) at patient's floor/unit and/or counseling patient: - Subjective Interval history: Mr Larsen is a 62 yo M w/ pmh of HTN, HLD, GERD, T2DM presented to ED with 3 day hx of diarrhea, dizziness, nausea, ovmiting, headache. Patient is seen and examined. Today patient states that he's feeling better. He no longer feels dizzy, nausea or vomiting, or headache. Patient denies chest pain, sob, abdominal pain. - Constitutional Vitals: Temp Pulse Resp BP Pulse Ox 99.5 F 102 16 117/74 95 07/07/17 07:22 07/07/17 07:22 07/07/17 07:22 07/07/17 07:22 07/07/17 07:22 General appearance: Present: cooperative, mild distress (Generalized weakness, nausea, chills), A&O X 3, pleasant, obese, answers questions appropriately - Head Head exam: Present: normal inspection - Neck Neck exam general surgery: Present: supple - Cardiovascular Cardiovascular exam: Present: RRR - GI/Abdominal GI/Abdominal exam: Present: normal bowel sounds, soft. Absent: distended, guarding, rebound, rigid, tenderness - Extremities Exam Extremities exam: Absent: pedal edema Internal Medicine: Result - Labs CBC & Chem 7: 07/07/17 00:28 07/07/17 00:28 Labs: Short CBC 07/07/17 Range/Units 00:28 WBC 8.9 (4.3-11.1) K/mcL Hgb 14.9 (12.9-16.9) g/dL Hct 45.1 (37.5-50.1) % Plt Count 208 (140-400) K/mcL Neutrophils # 5.9 (1.6-8.9) K/mcL BMP 07/07/17 07/07/17 00:28 00:28 Sodium 134 L 133 L Potassium 3.6 3.6 Chloride 101 100 Carbon Dioxide 27 26 BUN 14 14 Creatinine 1.29 1.28 Glucose 166 H 174 H Calcium 8.3 L 8.4 L Liver Function 07/07/17 Range/Units 00:28 Total Bilirubin 0.6 (0.3-1.0) mg/dL AST 23 (13-39) Units/L ALT 21 (7-52) Units/L Alkaline Phosphatase 50 (34-104) Units/L Albumin 3.2 L (3.5-5.7) g/dL Urine 07/06/17 Range/Units 22:36 Urine Color Yellow (Yellow) Urine Clarity Clear (Clear) Urine pH 5.5 (5.0-8.0) pH Units Ur Specific Alexander 1.030 H (1.010-1.025) Urine Protein >=300 H (Neg-Trace) mg/dL Urine Glucose (UA) 500 H (Normal) mg/dL Consult Discharge Plan - Plan Referrals: Noé Martin DO [Primary Care Provider] - <Justo Delgado - Last Filed: 07/07/17 18:39> Date of Encounter: 07/07/17 - Assessment and plan (1) Pneumonia Current Visit: Yes Status: Suspected Qualifiers: Pneumonia type: due to Pneumococcus Laterality: right Lung location: lower lobe of lung Qualified Code(s): J13 - Pneumonia due to Streptococcus pneumoniae (2) Sepsis Current Visit: Yes Status: Suspected Qualifiers: Sepsis type: Pneumococcus Qualified Code(s): A40.3 - Sepsis due to Streptococcus pneumoniae (3) Acute kidney injury Current Visit: Yes Status: Acute (4) Dizziness Current Visit: Yes Status: Acute (5) Nausea and vomiting Current Visit: Yes Status: Acute Qualifiers: Vomiting type: unspecified Vomiting Intractability: unspecified Qualified Code(s): R11.2 - Nausea with vomiting, unspecified (6) Leukocytosis Current Visit: Yes Status: Acute Qualifiers: Leukocytosis type: unspecified Qualified Code(s): D72.829 - Elevated white blood cell count, unspecified (7) GERD (gastroesophageal reflux disease) Current Visit: Yes Status: Chronic Qualifiers: Esophagitis presence: esophagitis presence not specified Qualified Code(s) : K21.9 - Gastro-esophageal reflux disease without esophagitis (8) HTN (hypertension) Current Visit: Yes Status: Chronic Qualifiers: Hypertension type: essential hypertension Qualified Code(s): I10 - Essential (primary) hypertension (9) HLD (hyperlipidemia) Current Visit: Yes Status: Chronic Qualifiers: Hyperlipidemia type: mixed hyperlipidemia Qualified Code(s): E78.2 - Mixed hyperlipidemia (10) Diabetes Current Visit: Yes Status: Chronic Qualifiers: Diabetes mellitus type: type 2 Diabetes mellitus exterminator helper termite insulin use: without exterminator helper termite use Diabetes mellitus complication status: with hyperglycemia Qualified Code(s): E11.65 - Type 2 diabetes mellitus with hyperglycemia (11) DVT prophylaxis Current Visit: Yes Status: Acute (12) Hyponatremia Current Visit: Yes Status: Acute (13) Generalized weakness Current Visit: Yes Status: Acute - Time Spent With Patient Total time spent is greater than 50% in coordination of care (as documented) at patient's floor/unit and/or counseling patient: - Constitutional Vitals: Temp Pulse Resp BP Pulse Ox 99 F 86 16 129/85 93 07/07/17 16:42 07/07/17 16:42 07/07/17 16:42 07/07/17 16:42 07/07/17 16:42 Internal Medicine: Result - Labs CBC & Chem 7: 07/07/17 00:28 07/07/17 00:28 Labs: Short CBC 07/07/17 Range/Units 00:28 WBC 8.9 (4.3-11.1) K/mcL Hgb 14.9 (12.9-16.9) g/dL Hct 45.1 (37.5-50.1) % Plt Count 208 (140-400) K/mcL Neutrophils # 5.9 (1.6-8.9) K/mcL BMP 07/07/17 07/07/17 00:28 00:28 Sodium 134 L 133 L Potassium 3.6 3.6 Chloride 101 100 Carbon Dioxide 27 26 BUN 14 14 Creatinine 1.29 1.28 Glucose 166 H 174 H Calcium 8.3 L 8.4 L Liver Function 07/07/17 Range/Units 00:28 Total Bilirubin 0.6 (0.3-1.0) mg/dL AST 23 (13-39) Units/L ALT 21 (7-52) Units/L Alkaline Phosphatase 50 (34-104) Units/L Albumin 3.2 L (3.5-5.7) g/dL Urine 07/06/17 Range/Units 22:36 Urine Color Yellow (Yellow) Urine Clarity Clear (Clear) Urine pH 5.5 (5.0-8.0) pH Units Ur Specific Alexander 1.030 H (1.010-1.025) Urine Protein >=300 H (Neg-Trace) mg/dL Urine Glucose (UA) 500 H (Normal) mg/dL - Impressions Impressions Chest CT 07/07/17 14:30 IMPRESSION: Dense right lower lobe consolidation with air bronchograms representing pneumonia in the correct clinical setting. There is a small parapneumonic effusion. Recommend follow-up radiographic imaging until resolution. D/ / 07/07/2017 11:36:28 Abraham Herrera MD / earnold Interpreting Provider: Abraham Herrera MD Head CT 07/07/17 15:21 IMPRESSION: No acute intracranial abnormality. D/ / 07/07/2017 17:28:53 Lokesh Bishop MD / Tiffanie Gorman Interpreting Provider: Lokesh Bishop MD - Attending Attestation I examined this patient and my medical decision-making was reviewed with the Resident Physician on 07/07/17. I agree with the documented findings, disposition and treatment plan as described except to the extent set forth below. Mr Larsen is currently admitted for pneumonia. He remains moderate to high risk due to potential for worsening clinical status. Mr Larsen has a frontal headache. No fever but feels achy. No GI issues now but had earlier in week. He did hit his head when he fell. CT shows PNA. Exam Alert Mild distress Mucus membranes dry Heart reg Lungs diminished. No wheeze Abd soft I/P 1. PNA 2. Cephalgia - check head CT due to fall. Further diagnoses and plan as above.
[2017-07-07] MEDS ORDERED: Ketorolac 30 MG/ML VIAL IVP ONE (15:20)
[2017-07-07] MEDS: Levofloxacin 750 MG/150 ML 750 MG/150 ML BAG IVPB SCH (16:55)
[2017-07-08 03:41] LABS: Basophils % 0.5 %; Eosinophils # 0.2 K/mcL (0.0-0.6); Hematocrit 38.3 % (37.5-50.1); Hemoglobin 13.1 g/dL (12.9-16.9); Immature Granulocytes % 0.3 % (0-4); Lymphocytes # 2.2 K/mcL (0.6-4.6); Mean Corpuscular HGB Conc 34.2 g/dL (31.6-35.5); Mean Corpuscular Hemoglobin 29.4 pg (28.0-33.3); Mean Corpuscular Volume 86.1 fL (83.0-100.0); Mean Platelet Volume 9.7 fL (9.4-12.4); Monocytes # 1.1 K/mcL (0.0-1.3); Monocytes % 16.8 %; Neutrophils # 2.8 K/mcL (1.6-8.9); Platelet Count 193 K/mcL (140-400); Red Blood Count 4.45 M/mcL (4.19-5.50); Red Cell Distribution Width 13.1 % (11.5-14.5); Segmented Neutrophils % 44.4 %
[2017-07-08 04:02] LABS: Alanine Aminotransferase 20 Units/L (7-52); Albumin 3.1 g/dL (3.5-5.7); Albumin/Globulin Ratio 1.1 (1.1-2.2); Alkaline Phosphatase 47 Units/L (34-104); Aspartate Amino Transferase 24 Units/L (13-39); BUN/Creatinine Ratio 11 (6-26); Bilirubin,Total 0.4 mg/dL (0.3-1.0); Blood Urea Nitrogen 12 mg/dL (8-23); Calcium 8.2 mg/dL (8.6-10.3); Carbon Dioxide 25 mEq/L (23-29); Chloride 102 mEq/L (98-107); Globulin 2.8 g/dL (2.4-3.5); Glucose 131 mg/dL (70-105); Osmolality,Calculated 282 (280-300); Potassium 3.4 mEq/L (3.5-5.1); Sodium 135 mEq/L (136-145); Total Protein 5.9 g/dL (6.4-8.9); eGFR For African Americans > 60 (> 60); eGFR For Non-African Americans > 60 (> 60)
[2017-07-08] MEDS: *HR* Heparin 5,000 UNIT/ML VIAL SQ SCH (04:57)
[2017-07-08] MEDS: 0.9 % Sodium Chloride 1,000 ML IVC SCH (05:02)
[2017-07-08 07:45] VITALS: BP 129/99
[2017-07-08] MEDS: Insulin LISPRO 300 UNITS/3 ML VIAL SQ SCH (08:39)
[2017-07-08] MEDS: traMADol 50 MG TABLET PO PRN (08:56)
[2017-07-08] MEDS ORDERED: Cholecalciferol (D-3) 1,000 UNIT TABLET PO SCH (09:00)
[2017-07-08] MEDS ORDERED: Magnesium Oxide 400 MG TABLET PO SCH (09:00)
--- NOTE | 2017-07-08 10:27 | Discharge Summary ---
<Kirk Thomas - Last Filed: 07/08/17 10:24> Date of Encounter: 07/08/17 Time of Encounter: 10:25 - Discharge Diagnosis (1) Acute kidney injury Priority: Secondary Status: Acute (2) Dizziness Priority: Secondary Status: Acute (3) Nausea and vomiting Priority: Secondary Status: Acute Qualifiers: Vomiting type: unspecified Vomiting Intractability: unspecified Qualified Code(s): R11.2 - Nausea with vomiting, unspecified (4) Leukocytosis Priority: Secondary Status: Acute Qualifiers: Leukocytosis type: unspecified Qualified Code(s): D72.829 - Elevated white blood cell count, unspecified (5) GERD (gastroesophageal reflux disease) Priority: Secondary Status: Chronic Qualifiers: Esophagitis presence: esophagitis presence not specified Qualified Code(s) : K21.9 - Gastro-esophageal reflux disease without esophagitis (6) HTN (hypertension) Priority: Secondary Status: Chronic Qualifiers: Hypertension type: essential hypertension Qualified Code(s): I10 - Essential (primary) hypertension (7) HLD (hyperlipidemia) Priority: Secondary Status: Chronic Qualifiers: Hyperlipidemia type: mixed hyperlipidemia Qualified Code(s): E78.2 - Mixed hyperlipidemia (8) Diabetes Priority: Secondary Status: Chronic Qualifiers: Diabetes mellitus type: type 2 Diabetes mellitus extermination supervisor insulin use: without extermination supervisor use Diabetes mellitus complication status: with hyperglycemia Qualified Code(s): E11.65 - Type 2 diabetes mellitus with hyperglycemia (9) DVT prophylaxis Priority: Secondary Status: Acute (10) Hyponatremia Priority: Secondary Status: Acute (11) Sepsis Priority: Secondary Status: Suspected Qualifiers: Sepsis type: Pneumococcus Qualified Code(s): A40.3 - Sepsis due to Streptococcus pneumoniae (12) Generalized weakness Priority: Secondary Status: Acute (13) Pneumonia Priority: Primary Status: Suspected Qualifiers: Pneumonia type: due to Pneumococcus Laterality: right Lung location: lower lobe of lung Qualified Code(s): J13 - Pneumonia due to Streptococcus pneumoniae Hospital course: Mr. Larsen is a 62 year old male who presented to [facility] ED with complaints of dizziness, vomiting, diarrhea. Patient was initially worked up to rule out cerebral etiologies and cardiac etiologies. MRI brain, MRA, Head CT showed no acute processes. On CXR patient was found to have a density in right lung. CT chest was used to follow up CXR, which confirmed a Right lower lobe consolidation. Patient was inintally treated empirically with Vanc and zosyn for suspicion of HAP, but was soon deescalated to levaquin. Patient was treated with Levaquin for 3 days in the hospital 750 mg, and will be discharged for 2 days of 750 mg. Patient was also respiratory supported, and put on IVF hydration. Urine strep and legionella were negative and viral respiratory panel was negative. Patient also had an elevated Cr of 1.45, which resolved once IVF were administered. Patient was also mildly hyponatremic w/o symptoms. Resolved once IVF were administered. Patient to have follow up with PCP within 1 week of d/c, and to finish Levaquin for sunday and sunday. Discharge discussed with: patient Time spent discussing smoking cessation with patient: more than 10 minutes - Time Spent with Patient Total time spent providing and/or coordinating discharge services: Greater than 30 minutes - Discharge Medications Prescriptions: Levofloxacin [Levaquin] 750 mg PO DAILY 2 Days #2 tablet Home Medications: Atorvastatin [Lipitor] 40 mg PO HS 07/06/17 [History] Esomeprazole Magnesium [Nexium] 40 mg PO DAILY 07/06/17 [History] Lisinopril [Zestril] 10 mg PO DAILY 07/06/17 [History] Metformin HCl [Glucophage] 1,000 mg PO BID 07/06/17 [History] Levofloxacin [Levaquin] 750 mg PO DAILY 2 Days #2 tablet 07/08/17 [Rx] Allergies/Adverse Reactions: 3 Allergy/AdvReac Type Severity Reaction Status Date / Time No Known Allergies Allergy Verified 07/06/17 09:11 Date of admission: 07/06/17 17:02 Primary care physician: Noé Martin, Discharging clinician: Kirk Thomas Anticipated date of discharge: 07/08/17 - Constitutional Vitals: Temp Pulse Resp BP Pulse Ox 97.9 F 97 17 129/99 92 07/08/17 07:41 07/08/17 07:41 07/08/17 07:41 07/08/17 07:41 07/08/17 07:41 General appearance: Present: cooperative, mild distress (Generalized weakness, nausea, chills), A&O X 3, pleasant, obese, answers questions appropriately - Head Head exam: Present: normal inspection - ENT ENT exam: Present: mucous membranes dry - Respiratory Respiratory exam: Present: wheezes (right lung) - Cardiovascular Cardiovascular exam: Present: RRR - GI/Abdominal GI/Abdominal exam: Present: normal bowel sounds. Absent: distended, guarding, rebound, tenderness - Extremities Exam Extremities exam: Absent: pedal edema - Patient Status Disposition: Home, Self-Care Condition: Fair - Discharge Instructions Follow Up With: Noé Martin DO [Primary Care Provider] - Forms: ED Satisfaction Letter - Diet and Activity Activity: increase activity as tolerated Diet: diabetic diet <Justo Delgado - Last Filed: 07/08/17 12:53> - NOTES TO OUTPATIENT PROVIDER Notes to Outpatient Provider: Mr Larsen was admitted with pneumonia. Needs repeat CT in future. Date of Encounter: 07/08/17 - Discharge Diagnosis (1) Pneumonia Status: Suspected Qualifiers: Pneumonia type: due to Pneumococcus Laterality: right Lung location: lower lobe of lung Qualified Code(s): J13 - Pneumonia due to Streptococcus pneumoniae (2) Sepsis Status: Resolved Qualifiers: Sepsis type: Pneumococcus Qualified Code(s): A40.3 - Sepsis due to Streptococcus pneumoniae (3) Acute kidney injury Status: Resolved (4) Dizziness Status: Resolved (5) Nausea and vomiting Status: Resolved Qualifiers: Vomiting type: unspecified Vomiting Intractability: unspecified Qualified Code(s): R11.2 - Nausea with vomiting, unspecified (6) Leukocytosis Status: Resolved Qualifiers: Leukocytosis type: unspecified Qualified Code(s): D72.829 - Elevated white blood cell count, unspecified (7) GERD (gastroesophageal reflux disease) Status: Chronic Qualifiers: Esophagitis presence: esophagitis presence not specified Qualified Code(s) : K21.9 - Gastro-esophageal reflux disease without esophagitis (8) HTN (hypertension) Status: Chronic Qualifiers: Hypertension type: essential hypertension Qualified Code(s): I10 - Essential (primary) hypertension (9) HLD (hyperlipidemia) Status: Chronic Qualifiers: Hyperlipidemia type: mixed hyperlipidemia Qualified Code(s): E78.2 - Mixed hyperlipidemia (10) Diabetes Status: Chronic Qualifiers: Diabetes mellitus type: type 2 Diabetes mellitus extermination supervisor insulin use: without fdc use Diabetes mellitus complication status: with hyperglycemia Qualified Code(s): E11.65 - Type 2 diabetes mellitus with hyperglycemia (11) Hyponatremia Status: Acute (12) Generalized weakness Status: Resolved Hospital course: Mr. Larsen is a 62 year old male - Time Spent with Patient Total time spent providing and/or coordinating discharge services: 39min Date of admission: 07/06/17 17:02 Primary care physician: Noé Martin, - Constitutional Vitals: Temp Pulse Resp BP Pulse Ox 97.9 F 97 17 129/99 92 07/08/17 07:41 07/08/17 07:41 07/08/17 07:41 07/08/17 07:41 07/08/17 07:41 - Attending Attestation I examined this patient and my medical decision-making was reviewed with the Resident Physician on 07/08/17. I agree with the documented findings, disposition and treatment plan as described except to the extent set forth below. Mr Larsen has been admitted with pneumonia. He is now afebrile. He is feeling better and wants to go home. He has minimal cough and no respiratory distress. Exam alert Comfortable mucus membranes dry Heart reg and not tachy Lungs with scant rales R base Abd soft Plan D/C home today on PO abx
[2017-07-08] MEDS ORDERED: Pneumococcal 23 Valent Vaccine 25 MCG/0.5 ML VIAL IM ONE (11:01)
[2017-07-08] MEDS ORDERED: levoFLOXacin 750 MG TABLET PO ONE (11:01)
[2017-07-08 23:39] LABS: Estimated Average Glucose 212 mg/dl
== END 2017-07-08 11:37 | disposition home or self-care (01) | DRG 871 ==
LOC: EMEROO 08:55 → 2NENU 08:55
PROVIDERS: ADMIT Internal Medicine; ATTEND Internal Medicine